=== PATIENT | female | born 1980 | race Caucasian/White ===

== ENCOUNTER 2017-04-14 12:16 | Emergency (ER) | payer MEDICAID, OTHER ==
[~2017-04-14] VITALS: Wt 71.0 kg
[2017-04-14 14:08] LABS: ADD UMIC YES; UR BILIRUBIN (Dip) NEGATIVE (NEGATIVE); UR BLOOD (Dip) 2+ (NEGATIVE); UR CLARITY SLIGHTLY CLOUDY (CLEAR); UR COLOR LT. YELLOW (YELLOW); UR GLUCOSE (Dip) NEGATIVE (NEGATIVE); UR KETONES (Dip) NEGATIVE (NEGATIVE); UR LEUKOCYTE ESTERASE (Dip) TRACE (NEGATIVE); UR NITRITE (Dip) NEGATIVE (NEGATIVE); UR TOTAL PROTEIN (Dip) NEGATIVE (NEGATIVE); UR UROBILINOGEN (Dip) 0.2 E.U./dL (0.1-1.0)
[2017-04-14 14:24] LABS: UR SQUAMOUS EPITHELIAL CELL FEW
[2017-04-14 14:25] LABS: UR BACTERIA FEW; URINE RBCS 0-2 /HPF (0)
--- NOTE | 2017-04-14 19:13 | RADRPT ---
PROCEDURE: US Pelvis. CLINICAL INDICATION: Pelvic pain TECHNIQUE: Multiple sonographic images of the pelvis were obtained utilizing a transabdominal and endovaginal technique. The images were reviewed on a PACS workstation. COMPARISON: None. FINDINGS: The uterus is visualized and measures 10.0 x 5.5 x 6.5 cm. The endometrial echo complex measures 15 mm thickness. 10 mm fibroid is identified in the posterior uterus. Simple appearing Nabothian cyst i s seen in the cervix. The right ovary measures 3.0 x 2.8 x 3.5 cm . The left ovary measures 2.3 x 1.5 x 2.0 cm. A 2.3 cm simple appearing right ovarian cyst is observed. The ovaries demonstrate normal vascularity.. Small amount of free fluid is noted in the cul-de-sac. IMPRESSION: Minimally thickened endometrium. Continued follow-up to assess for persistence of this finding can be considered. Simple Nabothian cyst in the cervix. 2.3 cm simple cyst on the right ovary. This likely reflects a prominent follicle or physiologic cys t. Small amount of nonspecific free fluid in the pelvis. This could be physiologic. If further characterization of the organs of the pelvis is needed MRI should be considered. RPTAT: AA .Shreyas Salomon MD, Date Time Electronically viewed and signed by .Shreyas Salomon MD, on 04/14/2017 16:41 .P/
--- NOTE | 2017-04-14 20:43 | ERD ---
ER Documentation Chief Complaint Date/Time DATE: 04/14/17 TIME: 16:54 Chief Complaint FEVER X 8 DAYS HPI 36-year-old female patient with a past medical history of ovarian cysts presents to the ED complaining of dysuria, hematuria, burning with urination, vaginal discharge, pelvic pain which started 10 days ago. Reports that based on all of her symptoms, her pelvic pain is bothering her the most. States that she has also had some intermittent vaginal discharge. Reports that she is concerned about STDs. States that she has 1 sexual partner. Reports that her last menses was sometime in March but does not remember her exact date of the last menses. Denies any abdominal pain, nausea, vomiting, diarrhea, constipation, chest pain, wheezing, shortness of breath. ROS All systems reviewed and are negative except as per history of present illness. PMhx/Soc Medical and Surgical Hx: pt denies Medical Hx, pt denies Surgical Hx Hx Alcohol Use: No Hx Substance Use: No Hx Tobacco Use: No Smoking Status: Never smoker Physical Exam Vitals Vital Signs Date Time Temp Pulse Resp B/P Pulse Ox O2 Delivery O2 Flow Rate FiO2 04/14/17 12:28 98.1 78 18 140/76 99 Physical Exam Const: [id number], well-nourished. In no acute distress. Head: Atraumatic, normocephalic Eyes: Normal Conjunctiva without injection. No purulent discharge. ENT: Normal external ear, nose. Moist oropharynx without tonsillar exudates. Non -erythematous pharynx. Uvula midline. No drooling. No trismus. Neck: No cervical midline tenderness. Full range of motion. No meningismus. No cervical lymphadenopathy. No JVD. Resp: Clear to auscultation bilaterally. No wheezing, rhonchi, rales, or crackles. No accessory muscle use. No retractions. Cardio: Regular rate and rhythm. No murmurs, rubs or gallops. Abd: Soft, bilateral pelvic tenderness, non distended. Normal bowel sounds. No palpable masses. No rebound tenderness. No guarding. Negative McBurney's point. Negative psoas sign. Negative obturator sign. : See MDM Skin: No petechiae or rashes Back: No midline tenderness. No CVA tenderness. Ext: No cyanosis, or edema. Neur: Awake and alert. Normal gait. Normal coordination. Psych: Normal Mood and Affect Results 24 hrs Laboratory Tests Test 04/14/17 13:34 Urine Color LT. YELLOW Urine Clarity SLIGHTLY CLOUDY Urine pH 6.0 Urine Specific [place] <=1.005 Urine Ketones NEGATIVE Urine Nitrite NEGATIVE Urine Bilirubin NEGATIVE Urine Urobilinogen 0.2 E.U./dL Urine Leukocyte Esterase TRACE Urine Microscopic RBC 0-2/HPF Urine Microscopic WBC 2-5/HPF Urine Squamous Epithelial Cells FEW Urine Bacteria FEW Urine Hemoglobin 2+ Urine Glucose NEGATIVE% Urine Total Protein NEGATIVE Procedures/MDM 36-year-old female patient with a past medical history of ovarian cyst presents the ED complaining of pelvic pain, dysuria, burning with urination, hematuria, vaginal discharge that started intermittently 8 days ago. Patient is afebrile and nontoxic-appearing. Patient has normal vital signs. Patient was further evaluated with an ultrasound, urinalysis, gonorrhea and chlamydia, urine , pelvic exam. Pending gonorrhea and chlamydia. Pelvic Exam: [employer] present Abdomen: [Nontender] External Genitalia: [Normal Skin] Speculum: [Normal vaginal mucosa, normal cervical discharge] Bimanual: [No adnexal masses or tenderness, No CMT] Patient had no vaginal discharge noted in her pelvic exam. Patient will be treated for urinary tract infection. I strictly instructed her to follow-up with her [facility] for further evaluation and treatment. Low suspicion for trichomoniasis, BV, symptomatic anemia, ectopic , sepsis, PID, appendicitis, ovarian torsion, tubo-ovarian abscess, surgical abdomen, or other emergent conditions. Pending the ultrasound results, this patient has been signed out to my colleague, Cecelia Hurtado NP. Discharge medications: Keflex, Ibuprofen, Pyridium (computer issues are not allowing for electronic prescriptions, therefore it was written) Patient to follow up with [facility] in 2 days for further evaluation and treatment. Patient is to return sooner to the ED for any worsening symptoms. Patient's questions were answered. Patient understood and agreed with discharge plan. Departure Diagnosis: Primary Impression: Pelvic pain Additional Impression: Dysuria Patient Instructions: Urinary Tract Infections in Women, Ovarian Cyst, Pelvic Pain, Unknown Cause Referrals: COMMUNITY CLINICS YOU HAVE RECEIVED A MEDICAL SCREENING EXAM AND THE RESULTS INDICATE THAT YOU DO NOT HAVE A CONDITION THAT REQUIRES URGENT TREATMENT IN THE EMERGENCY DEPARTMENT. FURTHER EVALUATION AND TREATMENT OF YOUR CONDITION CAN WAIT UNTIL YOU ARE SEEN IN YOUR DOCTORS OFFICE WITHIN THE NEXT 1-2 DAYS. IT IS YOUR RESPONSIBILITY TO MAKE AN APPOINTMENT FOR FOLOW-UP CARE. IF YOU HAVE A PRIMARY DOCTOR --you should call your primary doctor and schedule an appointment IF YOU DO NOT HAVE A PRIMARY DOCTOR YOU CAN CALL OUR PHYSICIAN REFERRAL HOTLINE AT IF YOU CAN NOT AFFORD TO SEE A PHYSICIAN YOU CAN CHOSE FROM THE FOLLOW[facility] [address] [facility] [address] [facility] [address] [facility] [address] [facility] [address] [facility]. [facility] [address] [facility] [facility] YOU HAVE RECEIVED A MEDICAL SCREENING EXAM AND THE RESULTS INDICATE THAT YOU DO NOT HAVE A CONDITION THAT REQUIRES URGENT TREATMENT IN THE EMERGENCY DEPARTMENT. FURTHER EVALUATION AND TREATMENT OF YOUR CONDITION CAN WAIT UNTIL YOU ARE SEEN IN YOUR DOCTORS OFFICE WITHIN THE NEXT 1-2 DAYS. IT IS YOUR RESPONSIBILITY TO MAKE AN APPOINTMENT FOR FOLOW-UP CARE. IF YOU HAVE A PRIMARY DOCTOR --you should call your primary doctor and schedule and appointment IF YOU DO NOT HAVE A PRIMARY DOCTOR YOU CAN CALL OUR PHYSICIAN REFERRAL HOTLINE AT . IF YOU CAN NOT AFFORD TO SEE A PHYSICIAN YOU CAN CHOSE FROM THE FOLLOWING [facility] INSTITUTIONS: [facility] [address] [place] [address] [facility] [address] [place] [address] [facility] [address] [place] [address] [facility] [employer] [address] [facility] [address] [place] [address] OFFICE FAX [facility] [address] [address] [address] [place] [address] [place] [address] DR BYERS, [place] [address] [address] [facility], [address], [place] [address] DR PORTILLO, [facility] [address] [facility] [place] [address] [facility] [address] [place] [address] [address] [facility], [facility] [address] - DR MIRANDA, SERGEI [address], [place] [address] DR QUINONEZ, [place] [address] [facility]. [address], [place] [address] [address] ROBLERO, [facility] [address] [place], [place] [id number] [facility] Hours: 8:00 am - 5:00 pm Additional Instructions: Llame al doctor MAANA y rafael kaylin YINKA PARA DENTRO DE 2-3 KEARNS.Dgale a la secretaria que nosotros le instruimos hacer esta yinka.Avise o llame si giles condicin se empeora antes de la yinka. Regresa aqui si peor o no mejor. JOVON LIN PA-C Apr 14, 2017 17:00
--- NOTE | 2017-04-14 20:45 | EN ---
Date/Time of Note Date/Time of Note DATE: 04/14/17 TIME: 17:47 ER Progress Note Patient Name Nan Torres Study Date 04/14/2017 3:12 PM Patient 1980 Accession No. [id number] Referring Physician Pamela Simon Pa-c CLINICAL INDICATION: Pelvic pain TECHNIQUE: Multiple sonographic images of the pelvis were obtained utilizing a transabdominal and endovaginal technique. The images were reviewed on a PACS workstation. COMPARISON: None. FINDINGS: The uterus is visualized and measures 10.0 x 5.5 x 6.5 cm. The endometrial echo complex measures 15 mm thickness. 10 mm fibroid is identified in the posterior uterus. Simple appearing Nabothian cyst is seen in the cervix. The right ovary measures 3.0 x 2.8 x 3.5 cm . The left ovary measures 2.3 x 1.5 x 2.0 cm. A 2.3 cm simple appearing right ovarian cyst is observed. The ovaries demonstrate normal vascularity.. Small amount of free fluid is noted in the cul-de-sac. IMPRESSION: Minimally thickened endometrium. Continued follow-up to assess for persistence of this finding can be considered. Simple Nabothian cyst in the cervix. 2.3 cm simple cyst on the right ovary. This likely reflects a prominent follicle or physiologic cyst. Small amount of nonspecific free fluid in the pelvis. This could be physiologic. If further characterization of the organs of the pelvis is needed MRI should be considered. Patient was signed out to me by Pamela MARROQUIN pending pelvic US results. Pelvis US reviewed by radiologist as 2.3 cm simple cyst on the right ovary. Small amount of nonspecific free fluid in the pelvis. Patient is stable and comfortable upon discharge. Vitals are stable. Return to ED for any high fever, chest pain, difficulty breathing, shortness breath, wheezing, vomiting, diarrhea, abdominal pain or any new or worsening symptoms. Patient verbalizes understanding. All questions answered at discharge. MILY PURI NP Apr 14, 2017 17:52
== END 2017-04-14 19:32 | disposition home or self-care (01) ==
LOC: FTE 12:16
DX: R10.2 Pelvic and perineal pain (principal); R30.0 Dysuria
CPT/HCPCS: 76830; 76856; 81001; 87591

== ENCOUNTER 2017-07-04 07:55 | Emergency (ER) | payer MEDICAID ==
[~2017-07-04] VITALS: Ht 172.7 cm; Wt 73.5 kg
[2017-07-04 07:58] VITALS: Ht 172.7 cm; Wt 73.5 kg
[2017-07-04] MEDS ORDERED: IBUPROFEN 600 MG TAB PO ONE (08:30)
--- NOTE | 2017-07-04 08:52 | RADRPT ---
PROCEDURE: Right knee series CLINICAL INDICATION: Pain. TECHNIQUE: 3 views. AP lateral and tunnel COMPARISON: None FINDINGS: No fractures or lesions are noted. Joint spaces are well maintained. No significant osteophytosis is noted. No effusion is identified. No erosions are visualized. The soft tissues are unremarkable. IMPRESSION: 1. No bony abnormalities are identified. RPTAT: HGSG .Danny Nettles MD, MD Date Time Electronically viewed and signed by .Danny Nettles MD, MD on 07/04/2017 08:52 .G/
[2017-07-04] MEDS ORDERED: IBUP-1542 PO (09:04)
--- NOTE | 2017-07-04 09:14 | ERD ---
ER Documentation Chief Complaint Date/Time DATE: 07/04/17 TIME: 09:09 Chief Complaint right knee pain for 2 weeks ambulatory HPI This is a 36-year-old female that presents to the ER with right knee pain for the last 2 weeks. The pain started while she was kneeling down including the floor for a long period of time. Patient noticed that afterwards her knee became bruised and has not been painful. Pain is worse whenever she walks. Resting makes her knee better. She tried taking Tylenol which helps for a few hours but then pain returns. Pain is nonradiating. She denies any fevers or chills. She denies any other trauma. She denies numbness or tingling of her extremity. ROS 12 point review of systems was done, all negative except per HPI. Medications Home Meds Active Scripts Ibuprofen* (Motrin*) 600 Mg Tab, 600 MG PO Q6, #30 TAB Prov:MICHAEL TAPIA 07/04/17 Allergies Allergies: Coded Allergies: No Known Allergy (Unverified , 07/04/17) PMhx/Soc Medical and Surgical Hx: pt denies Medical Hx, pt denies Surgical Hx Hx Alcohol Use: No Hx Substance Use: No Hx Tobacco Use: No Physical Exam Vitals Vital Signs Date Time Temp Pulse Resp B/P Pulse Ox O2 Delivery O2 Flow Rate FiO2 07/04/17 07:58 98.6 70 18 140/88 100 Physical Exam GENERAL: The patient is well developed and appropriate for usual state of health , in no apparent distress. HEENT: Atraumatic CHEST: Clear to auscultation bilaterally. There are no rales, wheezes or rhonchi. HEART: Regular rate and rhythm. No murmurs, clicks, rubs or gallops. EXTREMITIES: Right knee: Patient is able to bear weight and ambulate without pain. No surface trauma. No overlying erythema or warmth. The right knee is without obvious asymmetry when compared to the left knee. Patient is able to deep bend. she is able to fully extend knee, internal and external rotation. Not tender to palpation over the patella, no effusion. Not tender over the medial or lateral joint line, or the medial or lateral tibial plateau. Not tender to palpation over the proximal fibular head. No quadricep tenderness. No laxity of the ACL, PCL, MCL or LCL. Negative Evans test. Negative anterior and posterior drawer. Distal motor neurovascular status intact. Patient has an area of ecchymosis to the lateral knee. NEURO: Alert and oriented SKIN: The skin is warm and dry. Results 24 hrs Current Medications Medications (Trade) Dose Ordered Sig/Wali Route PRN Reason Start Time Stop Time Status Last Admin Dose Admin Ibuprofen (Motrin) 600 mg ONCE ONCE PO 07/04/17 08:30 07/04/17 08:31 DC 07/04/17 08:29 [place] [address] Radiology Main Line: [phone] DIAGNOSTIC IMAGING REPORT Patient: RUDY SALAS : 1980 Age: 36 Sex: F MR #: [id number] DOS: 07/04/17 0000 Ordering MD: MICHAEL TAPIA. PA-C Location: [facility] Room/Bed: PROCEDURE: Right knee series CLINICAL INDICATION: Pain. TECHNIQUE: 3 views. AP lateral and tunnel COMPARISON: None FINDINGS: No fractures or lesions are noted. Joint spaces are well maintained. No significant osteophytosis is noted. No effusion is identified. No erosions are visualized. The soft tissues are unremarkable. IMPRESSION: 1. No bony abnormalities are identified. RPTAT: HGSG .Danny Nettles MD, MD Date Time Electronically viewed and signed by .Danny Nettles MD, MD on 07/04/2017 08: 52 .G/ CC: MICHAEL TAPIA Procedures/MDM Differential diagnosis includes but is not limited to knee contusion, knee sprain, ligament injury, patellar dislocation, joint dislocation, patellar or tibial plateau fracture, Ash's cyst, DVT, meniscus tear, prepatellar bursitis , septic joint, gout, tumor. Likely knee contusion, patient has full and nonpainful range of motion she is also afebrile and well-appearing. Suspicion for infectious etiology such as joint is low. Patient will be given an Thad wrap and she will be sent home with ibuprofen. Patient is to follow-up with her primary care doctor within 1-2 days return to ER sooner if symptoms worsen. My medical decision making shared with the patient she understands and agrees with plan. Departure Diagnosis: Primary Impression: Knee pain Condition: Stable Patient Instructions: Knee Pain, Uncertain Cause Additional Instructions: Llame al doctor MAMARU y rafael kaylin YINKA PARA DENTRO DE 1-2 KEARNS.Dgale a la secretaria que nosotros le instruimos hacer esta yinka.Avise o llame si giles condicin se empeora antes de la yinka. Regresa aqui si peor o no mejor. MICHAEL TAPIA Jul 04, 2017 09:14
== END 2017-07-04 09:15 | disposition home or self-care (01) ==
LOC: FTE 07:55
DX: M25.561 Pain in right knee (principal)
CPT/HCPCS: 73562; Z7502; Z7610